=== PATIENT | female | born 1995 | race Caucasian/White ===

== ENCOUNTER → 2020-04-06 | Outpatient (CLI) | payer BC ==
--- NOTE | 2020-04-06 12:44 | XR ---
Nasal bone and facial bones HISTORY: Pain, no history of injury 3 views of the nasal bones, 3 views of the facial bones submitted. There are no air-fluid levels in the paranasal sinuses to suggest acute sinusitis. Orbits are intact. Bone mineralization is maintained. No fracture or dislocation. Mastoid air cells appear well aerated . IMPRESSION: No abnormality evident. CT scan could be performed for increased sensitivity as indicated .
== END | disposition home or self-care (01) ==
LOC: RADXRMAIN 11:25
PROVIDERS: ATTEND Family Medicine
DX: J34.89 Other specified disorders of nose and nasal sinuses (principal); R68.84 Jaw pain
CPT/HCPCS: 70150; 70160

== ENCOUNTER → 2021-01-21 | Outpatient (CLI) | payer BC ==
--- NOTE | 2021-01-21 10:56 | XR ---
EXAM TYPE: LUMBAR SPINE X RAY SERIES COMPARISON: NONE HISTORY: Pain TECHNIQUE: 3 views are submitted. FINDINGS: Alignment is anatomic. The pedicles are intact. The transverse processes are intact. There is no s pondylolysis or spondylolisthesis. IMPRESSION: 1. No acute process.
--- NOTE | 2021-01-21 10:57 | XR ---
EXAMINATION TYPE: XR knee complete RT DATE OF EXAM: 01/21/2021 COMPARISON: NONE HISTORY: Pain TECHNIQUE: Three views are submitted. FINDINGS: Joint spaces are preserved. Osseous structures are intact. No acute fracture seen. IMPRESSION: 1. No acute fracture or dislocation.
--- NOTE | 2021-01-21 10:57 | XR ---
EXAMINATION TYPE: XR Hip Complete LT DATE OF EXAM: 01/21/2021 COMPARISON: NONE HISTORY: Pain TECHNIQUE: 2 views submitted FINDINGS: There is no evidence of erosive change or acute fracture. IMPRESSION: 1. No evidence of acute fracture or dislocation.
== END | disposition home or self-care (01) ==
LOC: RADXRMAIN 10:19
PROVIDERS: ATTEND Nurse Practitioner Family
DX: M25.552 Pain in left hip (principal); M25.561 Pain in right knee; M54.50 Low back pain, unspecified
CPT/HCPCS: 72100; 73502

== ENCOUNTER → 2021-04-10 | Outpatient (CLI) | payer BC ==
--- NOTE | 2021-04-11 08:50 | MR ---
EXAMINATION TYPE: MR knee RT wo con DATE OF EXAM: 04/10/2021 COMPARISON: Outside radiograph 03/19/2021 HISTORY: 25-year-old female M25.561, Pain in right knee TECHNIQUE: Multiplanar, multisequence imaging of the right knee is performed without IV contrast. FINDINGS: The ACL, PCL, MCL, and LCL complex appear intact. Both medial and lateral menisci are intact. Tricompartment articular cartilage volumes are maintained. Very mild edema within the suprapatellar fat pad. Extensor mechanism appears intact. There is slight lateral patellar tilt noted and TT-TG distance of 1.6 cm. No significant joint effusion or Aden's cyst. A mild edema within the gastrocnemius. Normal popliteal artery anatomy and muscle bulk. No suspicious bone marrow replacement. IMPRESSION: 1. TT-TG distance of 1.6 cm and slight lateral patellar tilt on axial images. Correlate for any sympt oms of patellar tracking disorder. No chondromalacia seen at this time. 2. Very mild edema within the suprapatellar fat pad is nonspecific. Findings may be seen in the setti ng of fat pad impingement syndrome. Clinically correlate. 3. No cruciate/collateral ligament or meniscal tear. 4. Mild edema within the gastrocnemius. Findings may be reactive to altered biomechanics or could rep resent mild muscle strain.
== END | disposition home or self-care (01) ==
LOC: RADMRIMAIN 12:07
PROVIDERS: ATTEND Orthopaedic Surgery
DX: R60.0 Localized edema (principal); M25.561 Pain in right knee

== ENCOUNTER → 2021-11-21 | Outpatient (CLI) | payer BC ==
[2021-11-21 18:10] LABS: Basophils # (A) 0.08 X 10*3/uL (0.00-0.10); Basophils % (A) 0.6 %; Eosinophils # (A) 2.91 X 10*3/uL (0.04-0.35); Eosinophils % (A) 21.3 %; HCT 41.3 % (37.2-46.3); HGB 13.7 g/dL (12.0-15.0); Immature Grans, Automated 0.2 %; Lymphocytes # (A) 4.34 X 10*3/uL (0.90-5.00); Lymphocytes % (A) 31.7 %; MCH 30.2 pg (27.0-32.0); MCHC 33.2 g/dL (32.0-37.0); Mean Platelet Volume 10.8 fL (9.5-12.2); Monocytes # (A) 0.47 X 10*3/uL (0.20-1.00); Monocytes % (A) 3.4 %; NRBC Per 100 WBC 0 /100 WBCS (0.0-0.0); Neutrophils # (A) 5.86 X 10*3/uL (1.80-7.70); Neutrophils % (A) 42.8 %; Platelet Count 295 X 10*3/uL (140-440); RBC 4.54 X 10*6/uL (4.10-5.20); RDW 12.3 % (11.5-14.5); WBC 13.69 X 10*3/uL (4.50-10.00)
[2021-11-21 18:18] LABS: African American GFR (CKD) 118.8 (60.0-200.0); Anion Gap 12.2 mmol/L (10.00-18.00); Blood Urea Nitrogen 14.4 mg/dL (9.0-27.0); Carbon Dioxide 19.8 mmol/L (20.0-27.5); Non-African American GFR(CKD) 102.5 (60.0-200.0); Potassium 3.8 mmol/L (3.5-5.5)
[2021-11-21 19:44] LABS: INR 0.98 (0.90-1.11); Prothrombin Time 10.8 sec (9.9-11.9)
== END | disposition home or self-care (01) ==
LOC: LABWHC1 12:50
PROVIDERS: ATTEND Orthopaedic Surgery
DX: Z01.812 Encounter for preprocedural laboratory examination (principal); I49.8 Other specified cardiac arrhythmias; M51.26 Other intervertebral disc displacement, lumbar region; Z22.322 Carrier or suspected carrier of Methicillin resistant Staphylococcus aureus
CPT/HCPCS: 36415; 80048; 85025; 85610; 87070; 93005

== ENCOUNTER 2021-12-02 06:20 | Day surgery (SDC) | payer BC ==
[2021-11-26 12:25] VITALS: BMI 53.1
[~2021-12-02 06:20] MED LIST: ACETAMINOPHEN TAB 500 MG TAB PO PRN; GABAPENTIN 300 MG CAP PO PRN; LACTATED RINGERS 1,000 ML IV SCH; MIDAZOLAM 2 MG/2 ML VIAL IV PRN; ONDANSETRON 4 MG/2 ML VIAL IVP PRN; TRANEXAMIC ACID IN NACL,ISO-OS 1,000 MG in SALINE 1 100ML.BAG IVPB PRN; ceFAZolin 3 GM in SODIUM CHLORIDE 0.9% 100 ML IVPB PRN
[2021-12-02] MEDS ORDERED: HYDROmorphone 0.5 MG/0.5 ML SYRINGE IVP PRN ×2 (07:00→08:27)
--- NOTE | 2021-12-02 07:03 | P.HPOR ---
History of Present Illness H&P Date: 11/18/21 Chief Complaint: RLE weakness, RLE pain and paresthesias [facility] History and Physical Date of :[birth year] Age: 25 year Height: 5'4" Weight: 300 lbs BMI: 51.49 kg/m2 Occupation: Unemployed VAS: 6 CHIEF COMPLAINT: Recheck lumbar spine DOI:Chronic DOS: N/A Duration of current treatment regiment: 3 months HISTORY: Xrays brought xray report from outside facility. Instructed to bring films. New xrays taken in office Trauma or injury No Work-Related No Pain description aching, sharp, increasing . Location posterior Patient notes that their pain radiates to bilateral lower extremities Activity Modification yes Hand Dominance right TREATMENTS COMPLETED: 6 weeks of PT completed? Month and Year of last PT date? None recent No Physician recommended home exercise completed? Duration of HEP course: Current yes Patient has trialed the physician directed home exercise program for (without) relief of their symptoms. Medications yes List: Aleve, Advil, Motrin 800mg, Flexeril all without relief. Alternative interventions Chiropractic: No Massage therapy: No R.I.C.E: No Brace: No Injections No RFA: No SUBJECTIVE: Ms. Bird returns to the office for a recheck of their low back pain and to review her MRI obtained after the time of the last appointment. Since the time of the last appointment the patient reports a increasing lumbar pain ongoing for 3 years with no known injury or trauma to indicate an exact onset of their symptoms. In addition to their lumbar pain, they do report that it radiates into the bilateral lower extremities (right worse than left), associated withnumbness and tingling through L5-S1 dermatomal distribution. Overall the patient has seen a progressive increase in symptoms since their onset. Ms. Bird symptoms are exacerbated with any standing or ambulation, due to this they notes that it is increasingly difficult for Ms. Bird to complete many of their daily tasks. Patient is having severe sleep disturbances as well due to their ongoing pain and associated symptoms. Regarding treatments, the patient has previously trialed all abovementioned treatment modalities all without relief of her symptoms. Patient denies trialing any other modalities at this time. For their symptoms, the patient has been taking Advil, Aleve, Motrin 800mg, and Flexeril all without relief of her symptoms as well. Otherwise the patient denies any f/c/sob/cp, no incision concerns, no bladder or bowel retention/incontinence, no perineal numbness/tingling, and ambulates independently. HISTORY: Ms. Bird was last seen on 10/14/2021 regarding their chronic low back pain. Patient reports a constant sharp and aching lumbar pain ongoing for 3 years and increasing over the past year with no known injury or trauma to indicate an exact onset of their symptoms. In addition to their lumbar pain, they do report that it radiates into the right lower extremity, associated with numbness and tingling. Overall the patient has seen a progressive increase in symptoms since their onset. Ms. Bird symptoms are exacerbated with sitting, standing, and walking, due to this they notes that it is increasingly difficult for Ms. Bird to complete many of their daily tasks. Patient states she has not left her house and in over a year, except doctors appts and is not able to work. She states she is unable to sit long enough to drive. Patient is having intermittent sleep disturbances as well due to their ongoing pain and associated symptoms. Regarding treatments, the patient has previously trialed the above listed modalities. Patient denies trialing any other modalities at this time. For their symptoms, the patient has been taking Advil and Aleve. Otherwise the patient denies any f/c/sob/cp, no incision concerns, no bladder or bowel retention/incontinence, no perineal numbness/tingling, and ambulates independently. The patients' past social, medical, family, surgical history, as well as review of systems, have been reviewed. Please refer to the Neurosurgery History and Physical form that has been scanned in to our electronic medical record system. 16 points review of systems completed and as stated in HPI, all other systems reviewed are negative. Social History: Reviewed, see appropriate section of the chart for details. P3 Social History: Smoking: none P3 Alcohol: currently drinks alcohol P3 Family History: Reviewed, see appropriate section of the chart for details. P2 Past Medical History: Reviewed, see appropriate section of the chart for details. P1 Current Medications: Rx: sertraline 50 mg tablet Ref: 0 Rx: cyclobenzaprine 5 mg tablet Ref: 0 Rx: ibuprofen 800 mg tablet Ref: 0 PHYSICAL EXAMINATION: General: Awake, alert, appropriate for age, in no acute distress. HEENT: No unusual neck masses around region of lateral neck triangle, thyroid, supraclavicular groove Heart: Regular rate and rhythm, normal S1, S2 and no murmur/gallop. Lungs: Clear to auscultation bilaterally with no use of accessory muscles. Extremities: Skin warm and dry without acute lesions, coloration, temperature, skin intact, no tenderness or erythema Integument: Hairy patches: ABSENT Dorsal skin dimples: ABSENT Cafe au lait spots: ABSENT Surgical incisions: n/a Palpation: Please see Pain drawing on Intake sheet for further detail. Midline spinal tenderness: No E6 Cervical Tenderness: No E6 Paralumbar tenderness: No E6 Parathoracic tenderness: No E6 Buttocks tenderness: No E6 Sacroilliac Tenderness: No POSTURAL and MUSCULO-SKELETAL EVALUATION: Coronal Balance: NEUTRAL Recumbent testing: Patient is able to lay flat on back Sagittal Balance: NEUTRAL Shoulder Profile: LEVEL Pelvic Girdle: LEVEL Neck ROM: UNRESTRICTED Lumbar ROM: RESTRICTED Shoulder ROM: Symmetrical Hip ROM: Symmetrical Knee ROM: Symmetrical Hands: Normal appearance, symmetrical Feet: Normal appearance, Symmetrical VASCULAR STATUS : LEFT RIGHT Wrist Pulses INTACT INTACT Pedal Pulses (Dors. pedis & post.tibialis) INTACT INTACT Color NORMAL NORMAL Edema Absent Absent NEUROLOGIC EXAMINATION: Mental Status:Awake and alert, fully oriented, with normal attention, concentration and memory, and fluent, appropriate speech. Cranial Nerves: I: Olfactory not tested. II: Visual acuity normal, no visual field deficit noted with confrontation. III,IV: Normal pupillary reflexes & intact extraocular movements without nystagmus. V,: Intact symmetrical facial sensation. VII: Intact symmetrical facial motor movement VIII: Hearing intact. IX,X: Intact gag, swallow, & normal voice. XI: Sternocleidomastoid, trapezius function intact. XII: Tongue midline with normal movements. L'hermitte's Sign: Negative / absent Spurling'Sign: Absent bilaterally. Cubital percussion test: Absent bilaterally. Guidry-Tinel sign - Carpal region: Absent bilaterally. Straight Leg Raising: Absent bilaterally. 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 Sensory system (0-4, N/T) Test type RU ANTONIETA RL LL Joint-Position 2 2 2 2 Vibration 2 2 2 2 Pain & LT sense 2 2 2 2 Dermatomal Deficit: None None L5-S1 L5-S1 Gait and Functional Evaluation: Ambulatory aids: Cane Romberg's test: Intact bilaterally Toe heel walk / heel-toe walk intact while maintaining satisfactory balance? No Squatting/straightening w/o assistance to a min of 60 degree knee flexion? No Single leg stance: intact Trendelenburg sign negative bilaterally Hand and finger dexterity intact bilaterally? yes Disdiadochokinesis examination negative bilaterally? yes RADIOGRAPHIC STUDIES: XRay taken on 10/14/21 of Lumbar Spine and Pelvis: Images reviewed demonstrate overall well maintained alignment. There is disc height loss when compared to other levels at L5-S1 that is more severe. There are some sclerotic endplate changes noted as well. No acute fractures noted. No lesions noted. AP pelvis shows congurent level pelvis w/o fracture MRI scan from 09/04/2021 of Lumbar Spine: Images are reviewed and demonstrate large L5-S1 HNP with severe central and foraminal stenosis that is slightly paracentral to the right however causes wide central stenosis. There are modic endplate changes due to this disc herniation as well as disc height loss that is severe compared to other levels which are well hydrated and normal in appearance. There is b/l foraminal stenoisis slightly worse on right than left. There are no lesions noted. No fractures. L1-4 are of normal height and hydration. IMPRESSION: It was my pleasure to have seen and examined Karine. I reviewed the patient's clinical syndrome, physical findings, and imaging studies during the appointment today. It is my impression that the patient has a diagnosis of. 1. L5-S1 large herniated nucleus pulposus 2. L5-S1 spondylosis 3. Bilateral lower extremity radiculopathy R>L 4. Right lower extremity weakness with paresthesias .DX:Diagnosis: Herniation of lumbar intervertebral disc with sciatica : ICD10 = M51.16 / SNOMED = [id number] I outlined the natural course history without intervention and various interventional options. PLAN: Based on my findings I suggest the following course of action: -Advised patient to continue with supplements, health maintenance, and home exercise programs. Patient expressed understanding and will continue with these modalities. -I discussed treatment options with the patient, including operative and non- operative options, and they have elected to proceed with the following surgical procedure: lumbar (L5-S1) Microdiskectomy 65592 The indications, risks, benefits, and alternatives to surgery were discussed with the patient and family at length. Specifically (but not limited to) the risks of infection, stiffness, recurrence of symptoms, need for revision surgery, local numbness, neurovascular injury, and blood clots were discussed. The patient's questions were answered. The decision to proceed was made. Consent will be obtained for the procedure. -Labs on arriaval -Ambulate daily -Take medications as directed -Ice and rest for pain and swelling control. Follow-up: Post op Patient Education: (Informational booklet, instructions, etc) given at today's appointment: Yes .ED:Patient Education: Y Plan at next visit: review progress Medications Reviewed: YES In our visit today Ms. Bird and I have had a chance to go over my understanding of the patient's current condition, the natural course history without intervention and various interventional options. Questions were invited and answered, and the patient wishes to proceed as outlined above. I will be sure to keep you updated afterMs. Bird returns here for further follow-up. Thank you again for your referral. Please do not hesitate to contact me if you have any further questions. Signed and authenticated by: [facility] Minimally Invasive Spine Surgery [facility], [address] [address] Past Medical History Past Medical History: Hypertension Additional Past Medical History / Comment(s): PAST HISTORY OF HYPERTENSION- NO LONGER TAKING MEDICATIONS History of Any Multi-Drug Resistant Organisms: None Reported Additional Past Surgical History / Comment(s): LYMPH NODE -REMOVED FROM NECK AT AGE 3 Past Anesthesia/Blood Transfusion Reactions: No Reported Reaction Smoking Status: Never smoker - Past Family History Mother Family Medical History: No Reported History Medications and Allergies Home Medications Medication Instructions Recorded Confirmed Type Acetaminophen Tab [Tylenol] 650 mg PO Q4H PRN 11/26/21 11/26/21 History Sertraline HCl [Zoloft] 150 mg PO DAILY 11/26/21 11/26/21 History Allergies Allergy/AdvReac Type Severity Reaction Status Date / Time No Known Allergies Allergy Verified 12/02/21 06:47 Physical Examination Osteopathic Statement: *. No significant issues noted on an osteopathic structural exam other than those noted in the History and Physical/Consult. Assessment and Plan Plan: Spine Surgery Risk Review Karine Bird is a 25 yo female presenting for evaluation of RLE pain, weakness, radicular pain and numbness for the past few months. It was my pleasure to have seen and examined Karine Bird. In our visit today we have had a chance to go over subjective complaints, physical examination findings and treatments including the natural course history without intervention and various interventional options. The patients imaging demonstrates L5-S1 HNP paracentral to the right causing stenosis. On physical exam, Karine Bird demonstrates RLE weakness, RLE paresthesias and radiculopathy with SLR+. I have explained to the patient that as their condition progresses it will cause further neurological deficits and eventual paralysis. Based on the patients imaging, physical exam, and the rapid progression and disabling nature of their symptoms, at this time I recommend surgery in the form or a: L5-S1 microdiscectomy. I discussed the risk and benefits of this procedure at length with Karine Bird. The patient and her mother agreed to considered pursuing the procedure abovementioned. Prior to surgery, she should follow up with her PCP (Cardio, ID, IM etc) for clearance. Questions were invited and answered, and the patient wishes to proceed as outlined below. Currently, I am recommendin. L5-S1 Right minimally invasive microdiscectomy 2. Follow up with PCP for surgical clearance 3. Review of surgical risks and benefits as well as an educational packet on the proposed surgical procedure. Risks: All surgical procedures come with inherent risks, including those related to positioning, anesthesia, intraoperative findings, and postoperative complications. It is important to understand that surgery does not come with any guarantee of a successful outcome as complications and adverse events are always possible. The patient was given a handout in office today discussing the surgical procedure and risks associated with the intervention, both of which were discussed with the patient. These risks include but are not limited to the following: * Experiencing same, different or even worse symptoms in back, neck, arms, or legs compared to before surgery. * Requiring further surgery or other forms of treatment presently or at some time in the future at same or other levels of the intended spine surgery. * On an extreme but fortunately relatively rare basis severe complication such as blindness, stroke, heart attack, temporary and/or permanent nerve injury, paralysis, coma, or may occur, sometimes without known explanation. * Surgical complications may include but are not limited to risk of infection, fluid accumulation in the surgical dissection site, including a seroma or hematoma, that requires additional surgery, wound drainage, bleeding, new numbness or weakness, vision changes/loss, spinal fluid leakage, non-healing and/or infected incision, headaches, difficulty or inability to swallow, hoarseness, hemopneumothorax, pneumothorax, impotence, retrograde ejaculation, vaginal dryness; injury to nerves, spinal cord, blood vessels, lymphatics or other vital organs (i.e., bowel injury, injury to the great vessels); heterotopic bone formation; complications related to the hardware such as screws, rods, cages including misplaced hardware, device failure, instrumentation at the wrong spine level, hardware fracture/breakage, or hardware loosening; vertebral failure of the spinal column above or below the newly placed hardware; retained surgical instrumentations or devices and the need for further surgery. * Medical risks of the planned spine surgery include but are not limited to generalized Infections to the whole body or local areas outside of the surgical site (sepsis), heart attack, bleeding, anaphylaxis, meningitis, seizure, epilepsy, hearing loss, burn small, laceration of the head or other areas of the body, bruising, hypersensitivity of the skin, bladder over distension; allergic reaction; shoulder injury related to positioning; fat, blood and air clots to other areas of the body like heart, lungs, brain; failure of internal organs such as lungs, kidneys, liver and excessive bleeding. If blood transfusions are necessary, note that transfusions may cause intolerance reactions such as anaphylaxis or other complex reactions. * Despite best efforts, the results of spine surgery might not heal in terms of bone, soft tissues such as skin, fascia, ligaments, and joints. Additionally, in order to achieve best possible results, spine surgery may be carried out beyond the initially planned levels and involve decompression, fusion including insertion of hardware at levels other than the original intended area of surgical interest change some portions of the procedure in order to ensure the best possible outcomes. * With spine surgery and spinal fusion, there are different off label uses of instrumentation (devices, implants and hardware) as well as biological substances (bone morphogenic proteins, demineralized bone matrix) as well as using extra bone from allograft sources (i.e. cadaver bone) or autograft (iliac crest bone, ribs, or the spine itself). The patient has been given information about these practices and their inherent risks and benefits. The patient has had a chance to review all the listed information, has been given print outs detailing this information, and has had all his/her questions answered to their satisfaction. It was my pleasure to have seen and examined Karine Bird. In our visit today we have had a chance to go over my understanding of our patient's current condition, the natural course history without intervention and various interventional options. Questions were invited and answered, and the patient wishes to proceed as outlined above. I have seen and examined the patient for 25 minutes and we have spent more than 50% of the time in repeat and detailed counseling about the patient's condition, its natural course history with out and as much as can be predicted with surgery and re-review of various surgical treatment options. In conclusion, Karine Bird and her mother requested we proceed with the above suggested surgery and are willing to accept risks and limitations of the suggested surgery as nature of the disease process and our best attempts at treatment for the condition. Thank you again for allowing us to be part of your patient's care. Please don't hesitate to contact me if you have any further questions. Signed and authenticated by: Par[facility] [address], [address] [address]
[2021-12-02] MEDS ORDERED: SUCCINYLCHOLINE CHLORIDE 200 MG/10 ML VIAL IV ONE (07:38)
[2021-12-02] MEDS ORDERED: HYDROmorphone (PF) 1 MG/ML ONE (07:38)
[2021-12-02] MEDS ORDERED: LIDOCAINE 2% INJ 20 MG/ML (2 ML VIAL) ONE (07:38)
[2021-12-02] MEDS ORDERED: KETAMINE 10 MG/ML 20 ML VIAL ONE (07:38)
[2021-12-02] MEDS ORDERED: fentaNYL (PF) 50 MCG/ML 2 ML AMP ONE (07:38)
[2021-12-02] MEDS ORDERED: PROPOFOL 10 MG/ML 20 ML VIAL IV ONE (07:38)
[2021-12-02] MEDS ORDERED: TRANEXAMIC ACID IN NACL,ISO-OS 1,000 MG/100 ML BAG ONE (07:38)
[2021-12-02] MEDS ORDERED: GLYCOPYRROLATE 0.2 MG/ML 2 ML VIAL ONE (07:38)
[2021-12-02] MEDS ORDERED: MIDAZOLAM 2 MG/2 ML VIAL ONE (07:38)
[2021-12-02] MEDS ORDERED: NEOSTIGMINE 1 MG/ML 10 ML VIAL ONE (07:38)
[2021-12-02] MEDS ORDERED: ROCURONIUM 10 MG/ML (5 ML VIAL) IV ONE (07:38)
[2021-12-02] MEDS ORDERED: SENNOSIDES-DOCUSATE SODIUM 1 EACH TAB PO PRN (08:27)
[2021-12-02] MEDS ORDERED: CYCLOBENZAPRINE 5 MG TAB PO PRN (08:27)
[2021-12-02] MEDS ORDERED: HYDROcodone/APAP 5-325MG 1 EACH TAB PO PRN (08:27)
[2021-12-02] MEDS ORDERED: HYDROcodone/APAP 10-325MG 1 EACH TAB PO PRN (08:27)
[2021-12-02] MEDS ORDERED: HYDROmorphone 1 MG/ML 1 ML SYRINGE IVP PRN (08:27)
[2021-12-02] MEDS ORDERED: THROMBIN (BOVINE) 5,000 UNIT VIAL TOPICAL ONE (09:23)
[2021-12-02] MEDS ORDERED: ceFAZolin 1,000 MG in SODIUM CHLORIDE 0.9% 1,000 ML IRRIGATION ONE (09:29)
[2021-12-02] MEDS ORDERED: GELATIN SPONGE,ABSORB (SMALL) 1 EACH SPONGE TOPICAL ONE (09:29)
--- NOTE | 2021-12-02 09:47 | XR ---
EXAM TYPE: LUMBAR SPINE X RAY SERIES COMPARISON: NONE HISTORY: Intraoperative TECHNIQUE: 3 limited resolution intraoperative views are submitted. FINDINGS: There is intraoperative findings. IMPRESSION: 1. Intraoperative Limited images
--- NOTE | 2021-12-02 09:48 | FL ---
EXAMINATION TYPE: FL guidance operating room DATE OF EXAM: 12/02/2021 HISTORY: Fluoroscopy time 30 seconds of fluoroscopy provided. IMPRESSION: 1. Fluoroscopy time.
--- NOTE | 2021-12-02 09:55 | P.OP ---
Date of Procedure: 12/02/21 Preoperative Diagnosis: 1. L5-S1 HNP large 2. RLE radiculopathy and weakness Postoperative Diagnosis: 1. L5-S1 HNP large 2. RLE radiculopathy and weakness Procedure(s) Performed: MIS tubular exposure 1. L5-S1 Hemilaminotomy, partial medial facetectomy and microdiscectomy (48639) 2. Use of intraoperative microscope for visualization (04994) Implants: None Anesthesia: GETA Surgeon: Parth Walters Pasteuriser Operator #1: Shar eRyes (was present and assisted in all aspects of the case including exposure decompression closure and dressing placement) Estimated Blood Loss (ml): 25 IV fluids (ml): 1,200 Urine output (ml): 0 Pathology: none sent Condition: stable Disposition: PACU Indications for Procedure: 25-year-old female who presented to the office with weakness and pain going on for at least 3-4 months. She has unknown injury but her leg has been painful as well as her back. She had MRI which was completed and showed a large disc herniation at L5-S1 encroaching on the central canal as well as the exiting S1 nerve roots. The patient underwent conservative measures in the form of anti- inflammatory medications however she rapidly progressed in her weakness of right lower extremity after this and so we discussed different options including surgical and nonsurgical. At this time the patient has elected for surgical treatment. Risks and benefits were discussed as outlined in the risk reviewed and she is willing to proceed with the procedure. Description of Procedure: The patient was seen and examined in the preoperative area. All preoperative protocols were followed. Informed consent was obtained risks and benefits of the procedure were discussed at length. Risks including bleeding infection damage to the surrounding tissue and risk of reoperation were discussed with the patient. Risk of anesthesia up to and including was a discussed with the patient. These are outlined in the risk review. They were willing to accept these risks and all of the risks of surgery. The patient was given a weight- based dose of antibiotics in the form of to grams Ancef. The patient was seen and evaluated by the anesthesia team who deemed them fit for surgery. The site was marked, the patient was willing to proceed with the procedure. The patient was transferred to the operative suite by the Department of anesthesia. They were then drifted off to sleep by the department anesthesia and [anesthesia type] was performed. The patient tolerated this well. Once confirmation of lines and ventilation the patient was transferred to a [prone Tyrese table very carefully]. All bony prominences including wrists, elbows, axilla, chest, hips, and thighs, and feet were padded very well. Special attention was paid to the genitalia and these were padded accordingly. SCDs were placed on bilateral lower extremities and were connected. Arms were well padded and placed [on arm boards up and out in the 90/90 position]. Once in position, again we confirmed good ventilation capabilities and that lines were running appropriately. The patient's lumbosacral spine was then exposed. 1010s were placed outlining the incision site. Standard alcohol was used to clean the incision site and allowed to dry. C-arm was used to biomark the patient and confirm level for incision which was marked with a skin marker. Operative brie fing was performed with all teams and everyone in agreement to proceed. The patient was then prepped and draped in a normal sterile fashion. Timeout was then performed and all parties were in agreement with the procedure to be performed. C-arm was then used to localize the right-sided approach to the L5-S1 disc space. A skin incision was made in a initial dilator was placed through the fascia down over the facet and lamina of the L5-S1 region. This confirmed on AP and lateral fluoroscopy. Sequential dilation was then taken up to a 26 mm x 90 mm Tubular retractor. This was then position on AP and lateral confirmed good position and secured to the table. Microscope was then brought in for visualization limited myomectomy was performed which on roof the facet joint I AP of L5 and SAP of S1 as well as the lamina. Laminotomy was performed using high-speed bur along with a partial medial facetectomy. This allowed access to the epidural space agreement of flavum was removed using Kerrison rongeur and laminotomy was widened across midline with a Kerrison rongeur. This revealed a large disc herniation which was abutting the S1 root and causing severe central stenosis as well. Careful mobilization of the neural elements was performed and then they were protected with a nerve root retractor. An 11 blade was used to make an annulotomy and micropituitary used along with down-biting curet to remove the large disc fragment. This was taken out and measured to measure partially 7 cm. We then cleaned class midline with up-biting pituitary and any further floating disc fragments. The disc space was then irrigated any further loose fragments removed. Bipolar was used to scar the area of the annulotomy as well as perform meticulous hemostasis along with FloSeal. We then irrigated the wound thoroughly with normal sterile saline confirm level for decompression and adequate decompression. The tubular retractor system was then removed under direct visualization. We then irrigated the wound again. The fascia was then closed with 0 Vicryl the deep subcu tissue closed with 0 Vicryl the superficial subcu tissue closed with 2-0 Vicryl and the skin closed with 40 strata fix Monocryl. The wound was then cleaned and a Dermabond tape and glue was placed on the skin allowed to dry and then dressed with an operative foam dressing. The patient was transferred back to their hospital bed atraumatically. Patient was then awakened and extubated by the department of anesthesia having tolerated the procedure very well with no complications. They were transferred to the postoperative care unit in stable condition.
[2021-12-02 10:01] VITALS: TEMP 97.5
[2021-12-02] MEDS ORDERED: HYDROmorphone 0.5 MG/0.5 ML SYRINGE IVP ONE (10:05)
[2021-12-02] MEDS ORDERED: MEPERIDINE 50 MG/ML SYRINGE IVP ONE (10:25)
[2021-12-02] MEDS ORDERED: ONDANSETRON 4 MG/2 ML VIAL IVP ONE (10:36)
[2021-12-02 11:54] VITALS: BP 122/72
[2021-12-02] MEDS ORDERED: ACETAMINOPHEN TAB 325 MG TAB PO SCH (12:00)
[2021-12-02] MEDS ORDERED: DEXAMETHASONE SOD PHOSPHATE 4 MG/ML 1 ML VIAL IVP ONE (12:01)
[2021-12-02 12:43] VITALS: PULSE 90; RESP 18
== END 2021-12-02 13:06 | disposition home health service (06) ==
LOC: OR 06:20
PROVIDERS: ATTEND Orthopaedic Surgery
DX: M51.17 Intervertebral disc disorders with radiculopathy, lumbosacral region (principal); I10 Essential (primary) hypertension; Z79.899 Other long term (current) drug therapy
CPT/HCPCS: 63030; 81025; 86900; 86901; 86850; 72100; C1762; J2250; J0330; J1100; J2710; J2175; J0690 ×2; J2405; J3010; J1170 ×2; J2704; J2001